=== PATIENT | male | born 1990 | race Hispanic/Latino ===

== ENCOUNTER 2020-07-26 07:54 | Emergency (ER) | payer OTHER, SELFPAY ==
[2020-07-26 08:08] VITALS: BP 115/68; PULSE 75; RESP 16; TEMP 36.6; O2SAT 97; BMI 28.8
--- NOTE | 2020-07-26 08:09 | ED.GENADULT ---
HPI - General Adult General Chief complaint: Nausea/Vomiting/Diarrhea Stated complaint: Needs Covid + Flu testing per work Time Seen by Provider: 07/26/20 07:58 Source: patient Mode of arrival: Ambulatory Limitations: no limitations History of Present Illness HPI narrative: Patient is a 30-year-old male. 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 No vomiting. He has had a normal bowel movement since then. He reports no symptoms today. No fevers. No sick contacts. Was told by his boat that he needs a COVID and flu test before he can return. Related Data Allergies Allergy/AdvReac Type Severity Reaction Status Date / Time No Known Drug Allergies Allergy Verified 07/26/20 08:12 Review of Systems Constitutional Constitutional: Denies fever(s) Cardiovascular Cardiovascular: Denies chest pain and Denies dyspnea Respiratory Respiratory: Denies cough and Denies dyspnea Gastrointestinal Gastrointestinal: Reports abdominal pain, Reports diarrhea, Denies nausea and Denies vomiting Genitourinary Genitourinary: Denies dysuria Genitourinary: Denies dysuria Integumentary/Breasts Skin/Breast: Denies lesions and Denies rash Neurologic Neurologic: Denies behavioral changes Psychiatric Psychiatric: Denies behavioral changes Hematologic/Lymphatic Hematologic/Lymphatic: Denies easy bleeding and Denies easy bruising Allergic/Immunologic Allergic/Immunologic: Denies urticaria Patient History Medical History Healthy adult (Acute) Social History lives independently: Yes Smoking Status: Current some day smoker Exam Initial Vital Signs Initial Vital Signs: Vital Signs Temperature 97.8 F 07/26/20 08:08 Pulse Rate 75 07/26/20 08:08 Respiratory Rate 16 07/26/20 08:08 Blood Pressure 115/68 07/26/20 08:08 Pulse Oximetry 97 07/26/20 08:08 Const General: cooperative and comfortable Limitations: mental status not altered HENMT Head: normal to inspection and normocephalic Resp Effort & Inspection: normal respiratory effort GI Palpation: soft, No firm and No tender Skin Lesions: no lesions Rashes: no rashes Neuro General: patient alert and patient awake Cognition: normal cognition Speech: speech normal Extrem General: normal to inspection and capillary refill normal Psych Appearance: grossly normal and well kempt Course Orders Ordered: ED Orders 07/26/20 08:20 COVID19 -ED/INPAT/OR/L&D Stat Influenza A & B (PCR) Stat Vital Signs Vital signs: Vital Signs - 8 hr 07/26/20 08:08 Temperature 97.8 F Pulse Rate 75 Respiratory Rate 16 Blood Pressure 115/68 Pulse Oximetry 97 Medical Decision Making Lab Data Lab results reviewed: Yes I reviewed the patient's lab results. Labs: Lab Results 07/26/20 07/26/20 Range/Units 08:20 08:20 COVID-19 PCR Negative (Negative) Influenza A (RT-PCR) Flu a negative (NEGATIVE) Influenza B (RT-PCR) Flu b negative (NEGATIVE) MDM Narrative Medical decision making narrative: Flu and coronavirus test negative. Has no abdominal symptoms currently. He was given a copy of his lab results. Was given return precautions. He expressed understanding and agreement. Discharge Plan Departure Patient Disposition: Home Clinical Impression: Encounter for screening laboratory testing for COVID-19 virus Activity Restrictions/Additional Instructions: Your coronavirus and flu test were negative.
[2020-07-26 08:59] LABS: Influenza A - CEPHEID Flu A NEGATIVE (NEGATIVE); Influenza B - CEPHEID Flu B NEGATIVE (NEGATIVE)
[2020-07-26 09:19] LABS: COVID19 -Nasal RAPID Negative (Negative)
[2020-07-26 09:29] VITALS: BP 112/62; PULSE 82; RESP 14; O2SAT 99
== END 2020-07-26 09:30 | disposition home or self-care (01) ==
PROVIDERS: Emergency Provider Emergency Medicine
DX: Z03.818 Encounter for observation for suspected exposure to other biological agents ruled out (principal); R19.7 Diarrhea, unspecified; R10.9 Unspecified abdominal pain
CPT/HCPCS: 87502; 87635; 99281; 99282